=== PATIENT | male | born 1990 | race Caucasian/White ===

== ENCOUNTER 2021-01-01 16:39 | Emergency (ER) | payer OTHER, SELFPAY ==
[2021-01-01 16:45] VITALS: BP 139/91; PULSE 82; RESP 12; TEMP 36.5; O2SAT 99
--- NOTE | 2021-01-01 16:48 | ED.GENADULT ---
HPI - General Adult General Chief complaint: Abdominal Pain Stated complaint: low abd/groin tightness Time Seen by Provider: 01/01/21 16:49 Source: patient and RN notes reviewed Mode of arrival: ambulatory Limitations: no limitations History of Present Illness HPI narrative: 30-year-old male presents with concern for left lower abdominal pain that radiates to the left groin. He reports pain has been intermittent and somewhat mild over the past several weeks, however over the last 2 days the pain increased. He reports pain is made worse by straining, bending. Reports pain is improved with sitting. He denies vomiting, diarrhea, constipation. Reports he had a normal bowel movement today. Reports normal appetite. Denies fever, body aches. He denies testicular pain, swelling, redness, warmth. Denies dysuria, frequency, urgency. Denies exposure to STDs. Related Data Home Medications Medication Instructions Recorded Confirmed No Home Medications 01/01/21 01/01/21 Allergies Allergy/AdvReac Type Severity Reaction Status Date / Time No Known Allergies Allergy Verified 01/01/21 16:45 Review of Systems Review of Systems: CONSTITUTIONAL: Denies malaise, chills, sweats, or fever. CARDIOVASCULAR: Denies chest pain, palpitations, or edema. RESPIRATORY: Denies cough or dyspnea. GASTROINTESTINAL: Reports left lower abdominal pain that radiates to the left groin. Denies nausea, vomiting, diarrhea, bloody, or mucous stools. GENITOURINARY: Denies dysuria or hematuria. Denies testicular or scrotal swelling, redness, pain SKIN: Denies rash or itching. MUSCULOSKELETAL: Denies back pain or myalgia. All systems reviewed & are unremarkable except as noted in HPI and below PMFSH Family History Family History (System 06/04/20 @ 16:21 by Payal Diamond) Other Diabetes mellitus Family history of cardiovascular disease Family history of kidney disease Family history of tuberculosis Hypertension Social History Social History (System 06/04/20 @ 16:21 by Payal Diamond) Smoking status: Never smoker Alcohol intake: current Comments At time of signature, agree with nursing past medical, surgical, social and family history. There is no relevant family history pertinent to the presenting complaint Exam Narrative: GENERAL: Well-appearing, well-nourished, and in no acute distress. HEAD: Normocephalic, atraumatic. EYES: PERRLA, sclera clear ENT: Nares clear. Mucous membranes moist. NECK: Supple. CHEST: No respiratory distress. Clear to auscultation. No bony deformities, no asymmetry. Speaks in full sentences. HEART: Regular rate and rhythm. No murmur heard. Normal peripheral pulses. ABDOMEN: Soft, nontender, nondistended, normal active bowel sounds, no palpable masses. SKIN: Warm, dry, no visible rash. NEURO: Alert and oriented x3. PSYCH: Normal mood and affect Course Course Emergency Course: Discussed with patient follow-up with primary care provider or gastroenterology for further evaluation of his symptoms. Discussed reasons to go the emergency room if symptoms change. Patient is aware of diagnosis, understands and agrees to treatment plan. Anticipatory guidance given. Patient agrees to follow-up as directed and is aware of reasons to seek care at the emergency department. Portions of this record may have been created with voice recognition software Vital Signs Vital signs: Reviewed. Pt has been instructed to follow up with his primary care provider within the next week regarding his elevated blood pressure today. Medical Decision Making MDM Narrative Medical decision making narrative: No evidence of pancreatitis, AAA, cholecystitis, choledocholithiasis, cholangitis, mesenteric ischemia, small bowel obstruction, diverticulitis, colitis, appendicitis, or pelvic etiology such as ovarian/testicular torsion, TOA, or ectopic . Patient has no history of peptic ulcer, H. pylori, chronic aspirin NSAID or
== END 2021-01-01 17:08 | disposition home or self-care (01) ==
PROVIDERS: Emergency Provider Nurse Practitioner
DX: R10.32 Left lower quadrant pain (principal)
CPT/HCPCS: 99202; G0463

== ENCOUNTER 2021-02-28 09:14 | Emergency (ER) | payer OTHER, SELFPAY ==
--- NOTE | 2021-02-28 09:18 | ED.URI ---
HPI - URI/Sore Throat General Chief Complaint: Upper Respiratory Infection Stated Complaint: Sinus Infection,Abdominal Pain Time Seen by Provider: 02/28/21 09:22 Source: patient, RN notes reviewed and old records reviewed Mode of arrival: ambulatory Limitations: no limitations History of Present Illness HPI Narrative: 31 yo male presents to the [facility] with complaints of a sinus infection and abdominal pain. Sinus congestion started on Tuesday or , got worse last night. States he took a leftover amoxicillin. Has also taken DayQuil and NyQuil for symptoms. Has had gurgling sensation in the epigastric area. Denies any treatment prior to arrival. Patient denies chest pain, nausea, vomiting or diarrhea. Denies fevers MD elicited complaint: nasal congestion and sinus pain Related Data Allergies Allergy/AdvReac Type Severity Reaction Status Date / Time No Known Allergies Allergy Verified 02/28/21 09:30 Review of Systems Review of Systems: All systems reviewed & are unremarkable except as noted in HPI and below Constitutional: Constitutional: Reports no additional constitutional complaints, Denies chills and Denies fever(s) Eyes: Eyes: Reports no additional eye complaints ENT: Reports system reviewed and no additional complaints, except as documented, Reports as per HPI and Reports nasal congestion Cardiovascular: Cardiovascular: Reports no additional cardiovascular complaints and Denies chest pain Respiratory: Respiratory: Denies cough and Denies dyspnea Gastrointestinal: Gastrointestinal: Reports as per HPI, Reports abdominal pain (Gurgling epigastric), Denies constipation, Denies diarrhea, Denies nausea and Denies vomiting Musculoskeletal: Musculoskeletal: Reports no additional musculoskeletal complaints Integumentary/Breasts: Skin/Breast: Reports system reviewed and no additional complaints, except as docu Neurologic: Reports system reviewed and no additional complaints, except as documented Psychiatric: Psychiatric: Reports no additional psychiatric complaints Allergic/Immunologic: Allergic/Immunologic: Reports no additional allergic/immunologic complaints PMF Past Medical History Medical History (Updated 02/28/21 @ 09:37 by Maryjo Suazo) Patient denies significant medical history Surgical History Surgical History (Updated 02/28/21 @ 09:35 by Maryjo Suazo) No significant past surgical history Family History Family History Other Diabetes mellitus Family history of cardiovascular disease Family history of kidney disease Family history of tuberculosis Hypertension Social History Social History Smoking status: Never smoker Alcohol intake: current Comments At the time of my signature, I reviewed and agree with the nursing past medical, surgical, social, and family history. There is no relevant family history pertinent to the patient complaint. Exam Const: General: healthy appearing, no acute distress and alert Nutritional Appearance: well nourished and obese Orientation/consciousness: patient oriented x3 Limitations: no limitations HENMT: Head: normal to inspection Ears: external ears normal, TM's normal bilaterally and EAC's normal General nose exam: Normal external nose present, Normal nares present, Normal nasal mucous membranes and turbinates present and No nasal discharge present Face and sinus: normal facial exam Mouth: Yes Normal oral and palatal mucosa present Throat: posterior oropharynx normal, tonsils normal, uvula midline and no uvular edema Eyes: Conjunctivae: conjunctivae normal Pupils: Equal, round and reactive pupils present Neck: Neck: normal visual inspection, no lymphadenopathy and no meningeal signs Chest: Chest palpation & inspection: normal inspection of the chest Resp: Effort & Inspection: normal respiratory effort and no use of accessory musc
[2021-02-28 09:24] VITALS: BP 146/89; PULSE 91; RESP 16; TEMP 36.3; O2SAT 99
== END 2021-02-28 09:38 | disposition home or self-care (01) ==
PROVIDERS: Emergency Provider Nurse Practitioner
DX: J01.00 Acute maxillary sinusitis, unspecified (principal); K21.9 Gastro-esophageal reflux disease without esophagitis
CPT/HCPCS: 99213; G0463

== ENCOUNTER → 2021-05-22 15:06 | Outpatient (CLI) | payer OTHER, SELFPAY ==
--- NOTE | ~2021-05-22 | US_ITS ---
EXAMINATION: US breast LT limited HISTORY: Palpable mass at the 7:00 location of the left breast TECHNIQUE: Limited left breast ultrasound is performed. FINDINGS: There is no evidence of focal abnormal cystic or solid mass in the vicinity of the reported palpable abnormality of concern. IMPRESSION: No specific sonographic correlate is identified for the reported palpable abnormality of concern. Fur ther evaluation at this time should be based on clinical assessment. Continued follow-up physical exa mination is recommended. BI-RADS Category 1: Negative Reviewed, dictated and finalized at location [facility]. [employer] IMPRESSION: No specific sonographic correlate is identified for the reported palpable abnor mality of concern. Further evaluation at this time should be based on clinical assessment. Continued follow-up physical examination is recommended. BI-RADS Category 1: Negative
== END ==
PROVIDERS: Visit Provider Family Medicine
DX: N63.20 Unspecified lump in the left breast, unspecified quadrant (principal)
CPT/HCPCS: 76642

== ENCOUNTER 2021-09-29 14:36 | Emergency (ER) | payer OTHER, SELFPAY ==
--- NOTE | ~2021-09-29 | CT_ITS ---
EXAMINATION: CT abdomen pelvis w con DATE: 09/29/2021 16:29 INDICATION: Lower abdominal pain. Epigastric abdominal pain. Cramping. Lower back pain. TECHNIQUE: Computed tomography (CT) of the abdomen and pelvis was performed with 100 CC Omnipaque 300 intravenous contrast. Automated exposure control and iterative reconstruction technique were employe d. Exam dose: 1633.48 mGy-cm total exam DLP. COMPARISON: None. FINDINGS: The lung bases are clear. Normal heart size. No pericardial or pleural effusion. The liver, gallbladder, bile ducts, spleen, pancreas, pancreatic duct, and adrenal glands and kidneys are unremarkable. No urinary tract calculus or hydroureteronephrosis. The urinary bladder and prosta te gland are unremarkable. No bowel obstruction, bowel wall thickening, pneumatosis or intraperitoneal free air. Normal appendix . Small fat-containing umbilical hernia. Included skeletal structures are unremarkable. IMPRESSION: No significant abnormality Reviewed, dictated and finalized at [facility]. Reviewed, dictated and finalized at location [facility]. IMPRESSION: No significant abnormality
[2021-09-29 14:56] VITALS: BP 143/80; PULSE 88; RESP 16; TEMP 36.8; O2SAT 100
[2021-09-29 15:26] LABS: Basophils Absolute Auto 0.1 K/mm3 (0.0-0.1); Basophils Percent Auto 0.9 % (0.2-1.2); Eosinophils Absolute Auto 0.2 K/mm3 (0-0.3); Hematocrit 40.2 % (42.0-52.0); Hemoglobin 13.9 g/dL (14.0-18.0); Immature Granulocyte Absolute 0.05 K/mm3 (0.00-0.031); Immature Granulocyte Percent A 0.7 % (0-0.5); Lymphocytes Absolute Auto 1.91 K/mm3 (0.9-3.2); Lymphocytes Percent Auto 28.3 % (18.3-44.2); Mean Corpuscular HGB Conc 34.6 g/dl (32-36); Mean Corpuscular Hemoglobin 29.3 pg (26-34); Mean Corpuscular Volume 84.6 fl (80-100); Mean Platelet Volume 9.2 fl (7.4-10.4); Monocytes Absolute Auto 1.2 K/mm3 (0.1-0.6); Monocytes Percent Auto 17.8 % (2.6-8.5); Neutrophils Absolute Auto 3.3 K/mm3 (1.3-6.7); Neutrophils Percent Auto 49.3 % (45.5-73.1); Platelet Count Result 282 k/mm3 (150-375); Red Blood Count 4.75 M/mm3 (4.6-6.20); Red Cell Distribution Width 12.7 % (11.5-14.5); White Blood Count 6.8 K/mm3 (4.5-10.0)
[2021-09-29 15:33] LABS: Alanine Aminotransferase 58 U/L (6-50); Albumin Level 5.1 g/dL (3.5-5.1); Alkaline Phosphatase 76 U/L (38-126); Anion Gap 5 mmol/L (8-16); Aspartate Amino Transferase 35 U/L (17-59); Bilirubin,Total 0.6 mg/dL (0.2-1.3); Blood Urea Nitrogen 13 mg/dL (9-20); Calcium 9.1 mg/dL (8.4-10.2); Carbon Dioxide 32 mmol/L (22-30); Chloride 102 mmol/L (98-107); Estimated CRCL calculation 148 ml/min; Estimated Glomerular Filt Rate > 60; Glucose 94 mg/dL (65-110); Lipase 104 U/L (23-300); Potassium 4.8 mmol/L (3.4-5.0); Sodium 139 mmol/L (137-145)
[2021-09-29 15:49] LABS: Add Urine Microscopic? YES; Appearance Urine Clear (Clear); Bilirubin Urine Negative (Negative); Blood Urine Trace-lysed (Negative); Color Urine Yellow (Yellow); Glucose Urine UA Negative (Negative); Ketones Urine Negative (Negative); Leukocyte Esterase Ur Negative LEU/UL (Negative); Nitrate Urine Negative (Negative); Protein Urine 2+ mg/dL (Negative); Specific Grav Ur >= 1.030 (1.001-1.035); Urobilinogen Urine 0.2 mg/dL (<2.0)
[2021-09-29 15:56] VITALS: BP 127/85; PULSE 87; RESP 16; O2SAT 99
[2021-09-29 16:07] LABS: Bacteria Urine Trace /hpf; Mucus Urine Few /lpf; WBC Urine 0-3 /hpf
[2021-09-29] MEDS: DICYCLOMINE HCL INJ 20 MG/2 ML VIAL IM (16:08)
[2021-09-29] MEDS: SODIUM CHLORIDE 0.9% IV 1,000 ML 999 ML IV CONT (16:09)
--- NOTE | 2021-09-29 16:19 | ED.ABDPAIN ---
HPI - Abdominal Pain General Chief Complaint: Abdominal Pain Stated Complaint: abd pain Time Seen by Provider: 09/29/21 15:34 History of Present Illness HPI narrative: 31-year-old male presents the emergency room for evaluation of lower abdominal pain. Describes pain as cramping and is associated with frequent episodes of diarrhea. Denies nausea or vomiting. Denies back pain or radiating pain. Denies fever. Related Data Allergies Allergy/AdvReac Type Severity Reaction Status Date / Time No Known Allergies Allergy Verified 09/29/21 15:59 Review of Systems Review of Systems: CONSTITUTIONAL: Denies fever, chills, or sweats. EYES: Denies visual changes, redness, or discharge. ENT: Denies rhinorrhea, congestion, sore throat, or otalgia. CARDIOVASCULAR: Denies chest pain, palpitations, or edema. RESPIRATORY: Denies cough or dyspnea. GASTROINTESTINAL: Reports abdominal pain and diarrhea GENITOURINARY: Denies dysuria or hematuria. SKIN: Denies rash or itching. MUSCULOSKELETAL: Denies back pain, joint pain, or myalgia. NEUROLOGIC: Denies headache, numbness, dizziness, or weakness. PSYCHIATRIC: Denies anxiety or depression. [facility] Past Medical History Medical History Acute midline low back pain without sciatica Body mass index [BMI] 40.0-44.9, adult Encounter for preventive health examination Morbid (severe) obesity due to excess calories (01/02/16) Nevus Patient denies significant medical history Rectal bleeding Sore throat Spasm of back muscles Surgical History Surgical History No significant past surgical history Family History Family History Father Diabetes mellitus Hypertension Grandparent Cancer Social History Social History Smoking status: Never smoker Alcohol intake: current Alcohol use details: occasionally beer/whiskey Substance use: current Substance use type: marijuana 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 HEAD: Normocephalic, atraumatic. EYES: Conjunctivae normal, PERRLA and EOMI. CHEST: Clear to auscultation. No respiratory distress. No wheezes rales or rhonchi. No tenderness. HEART: Regular rate and rhythm. No murmur heard. Normal peripheral pulses. ABDOMEN: Soft, periumbilical tenderness, nondistended, normal active bowel sounds. No guarding. EXTREMITIES: Normal range of motion. No edema. No clubbing or cyanosis SKIN: Warm, dry, no rash. No noted wounds NEURO: No focal deficits. Alert and oriented x3. MAEW. CN's II-XI intact bilaterally, normal gait PSYCH: Cooperative. Normal mood and affect. Course Vital Signs Vital signs: Vital Signs Temperature 36.8 C 09/29/21 14:56 Pulse Rate 88 09/29/21 14:56 Respiratory Rate 16 09/29/21 14:56 Blood Pressure 143/80 H 09/29/21 14:56 Pulse Oximetry 100 09/29/21 14:56 Oxygen Delivery Room Air 09/29/21 14:56 Temperature 36.8 C 09/29/21 14:56 Pulse Rate 87 09/29/21 15:56 Respiratory Rate 16 09/29/21 15:56 Blood Pressure 127/85 09/29/21 15:56 Pulse Oximetry 99 09/29/21 15:56 Oxygen Delivery Room Air 09/29/21 15:56 MDM - Abdominal Pain MDM Narrative Medical decision making narrative: 31-year-old male presenting with lower abdominal pain. Exam was without any peritoneal signs. No evidence of acute abdomen at this time. CT scan showed no acute intra-abdominal abnormalities. There is a low suspicion for any hepatobiliary disease, acute pancreatitis or any infectious process. Presentation not consistent with any acut
[2021-09-29 17:09] VITALS: BP 148/86; PULSE 80; RESP 16; O2SAT 99
== END 2021-09-29 17:10 | disposition home or self-care (01) ==
PROVIDERS: Emergency Medicine; Emergency Provider Nurse Practitioner Family
DX: R10.30 Lower abdominal pain, unspecified (principal); E66.01 Morbid (severe) obesity due to excess calories; Z68.38 Body mass index [BMI] 38.0-38.9, adult
CPT/HCPCS: 36415; 74177; 80053; 81001; 83690; 85025; 96360; 96372; 99284; J0500; J7030; Q9967

== ENCOUNTER 2021-12-08 17:39 | Emergency (ER) | payer OTHER, SELFPAY ==
[2021-12-08 17:41] VITALS: BP 143/88; PULSE 99; RESP 18; TEMP 36.7; O2SAT 97
--- NOTE | 2021-12-08 19:45 | ED.GENADULT ---
HPI - General Adult General Chief complaint: Head Injury Stated complaint: HEAD INJ Time Seen by Provider: 12/08/21 19:27 History of Present Illness HPI narrative: Patient is a 31-year-old male who presents ER with an abrasion to his forehead. Reports he is lifting himself up on a dumpster when he struck his head on a metal corner. Because abrasion left forehead. He believes his tetanus shot is up-to-date. Since then he has developed some achiness in his left neck and also has developed some slight headache with dizziness. Unsure of any exacerbating factors. Has not tried any pain medication. No change in vision or hearing. No upper or lower extremity numbness or tingling. He has preserved range of motion of the neck. Related Data Allergies Allergy/AdvReac Type Severity Reaction Status Date / Time No Known Allergies Allergy Verified 12/08/21 19:22 Review of Systems Review of Systems: All systems reviewed & are unremarkable except as noted in HPI and below Eyes: Eyes: Denies change in vision and Denies photophobia Gastrointestinal: Gastrointestinal: Denies abdominal pain, Denies nausea and Denies vomiting Musculoskeletal: Musculoskeletal: Denies myalgias and Denies arthralgias Integumentary/Breasts: Skin/Breast: Reports erythema Comments: Forehead abrasion Neurologic: Denies syncope, Reports headache(s), Denies focal weakness and Denies numbness PMFSH Past Medical History Medical History Acute midline low back pain without sciatica Body mass index [BMI] 40.0-44.9, adult Encounter for preventive health examination Morbid (severe) obesity due to excess calories (01/02/16) Nevus Patient denies significant medical history Rectal bleeding Sore throat Spasm of back muscles Surgical History Surgical History No significant past surgical history Family History Family History Father Diabetes mellitus Hypertension Grandparent Cancer Social History Social History Smoking status: Never smoker Alcohol intake: current Alcohol use details: occasionally beer/whiskey Substance use: current Substance use type: marijuana 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 HEAD: Normocephalic, left forehead abrasion EYES: PERRL and EOMI. NECK: Supple, no midline tenderness, normal ROM. CHEST: Clear to auscultation. No respiratory distress. HEART: Regular rate and rhythm. Normal peripheral pulses. EXTREMITIES: Normal range of motion. No edema. NEURO: Alert and oriented x3. PSYCH: Normal mood and affect. Course Course Emergency Course: Patient resting comfortably. Discussed treatment plan and head injury precautions verbalized understanding. Discharge home. Vital Signs Vital signs: Vital Signs Temperature 98.0 F 12/08/21 17:41 Pulse Rate 99 12/08/21 17:41 Respiratory Rate 18 12/08/21 17:41 Blood Pressure 143/88 H 12/08/21 17:41 Pulse Oximetry 97 12/08/21 17:41 Oxygen Delivery Room Air 12/08/21 17:41 Temperature 98.0 F 12/08/21 17:41 Pulse Rate 99 12/08/21 17:41 Respiratory Rate 18 12/08/21 17:41 Blood Pressure 143/88 H 12/08/21 17:41 Pulse Oximetry 97 12/08/21 17:41 Oxygen Delivery Room Air 12/08/21 17:41 Medical Decision Making Vital Signs Vital Signs: Vital Signs Temperature 98.0 F 12/08/21 17:41 Pulse Rate 99 12/08/21 17:41 Respiratory Rate 18 12/08/21 17:41 Blood Pressure 143/88 H 12/08/21 17:41 Pulse Oximetry 97 12/08/21 17:41 Oxygen Delivery Room Air 12/08/21 17:41
== END 2021-12-08 20:20 | disposition home or self-care (01) ==
PROVIDERS: Emergency Provider Emergency Medicine
DX: S00.81XA Abrasion of other part of head, initial encounter (principal); E66.01 Morbid (severe) obesity due to excess calories; Z68.39 Body mass index [BMI] 39.0-39.9, adult; W22.8XXA Striking against or struck by other objects, initial encounter
CPT/HCPCS: 99283

== ENCOUNTER 2023-04-13 09:44 | Emergency (ER) | payer OTHER, SELFPAY ==
--- NOTE | ~2023-04-13 | CT_ITS ---
EXAMINATION: CT lumbar spine wo con DATE: 04/13/2023 12:04 INDICATION: Low back pain radiating to the right leg. TECHNIQUE: Computed tomography (CT) of the lumbar spine was performed without intravenous contrast. T he dose-length product was 1354.74 mGy-cm. Automated exposure control and iterative reconstruction te cherylcainque were employed. COMPARISON: MRI dated 08/11/2009 FINDINGS: There is mild annular disc bulging at L5-S1 with disc narrowing. There is endplate hypertro phy at this level, contributing to mild-moderate neuroforaminal narrowing, left greater than right. V ertebral body heights are maintained. Chronic mild wedge shaped appearance to L1, unchanged. No acute fracture or traumatic malalignment. No evidence for spondylolisthesis. No significant paraspinal sof t tissue abnormality. IMPRESSION: 1. Mild lumbar spondylosis at L5-S1 with bilateral neural foraminal narrowing, left greater than righ t. Reviewed, dictated and finalized at location [facility]. [employer] IMPRESSION: 1. Mild lumbar spondylosis at L5-S1 with bilateral neural foraminal narrowing, left greater than right.
[2023-04-13 09:47] VITALS: BP 156/102; PULSE 85; RESP 16; TEMP 36.6; O2SAT 99
--- NOTE | 2023-04-13 11:39 | ED.BACK ---
HPI - Back Pain/Injury General Chief Complaint: Back Pain/Injury Stated Complaint: back pain Time Seen by Provider: 04/13/23 10:57 Source: patient Mode of arrival: ambulatory Limitations: no limitations History of Present Illness HPI Narrative: This is a 33-year-old male that presents to the emergency department for low back pain. Ongoing over the last week. No recent injuries or trauma. Reports the pain is in his right buttock and radiates down his right leg. Reports intermittent tingling in his toes. Pain is worse with movement. He has been taking Tylenol with little relief. Denies saddle anesthesia, bowel/ bladder incontinence. Related Data Allergies Allergy/AdvReac Type Severity Reaction Status Date / Time No Known Allergies Allergy Verified 04/13/23 12:10 Review of Systems Review of Systems: CONSTITUTIONAL: Denies fever MUSCULOSKELETAL: Reports back pain, joint pain, and myalgia. NEUROLOGIC: Denies numbness, or weakness. All systems reviewed & are unremarkable except as noted in HPI and below PMFSH Past Medical History Medical History Acute midline low back pain without sciatica Body mass index [BMI] 40.0-44.9, adult Encounter for preventive health examination Morbid (severe) obesity due to excess calories (01/02/16) Nevus Patient denies significant medical history Rectal bleeding Sore throat Spasm of back muscles Surgical History Surgical History No significant past surgical history Family History Family History Father Diabetes mellitus Hypertension Grandparent Cancer Social History Social History Smoking status: Never smoker Alcohol intake: current Alcohol use details: occasionally beer/whiskey Substance use: current Substance use type: marijuana Living arrangements: with roommate(s) Occupation/Education: occupation 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 HEAD: Normocephalic, atraumatic. EYES: EOMI. CHEST: Clear to auscultation. No respiratory distress. No wheezes rales or rhonchi HEART: Regular rate and rhythm. No murmur heard. Normal peripheral pulses. BACK: No midline spinal tenderness EXTREMITIES: Normal range of motion. No edema. Strength equal in bilateral lower extremities (5/5) SKIN: Warm, dry, no rash. NEURO: No focal deficits. Alert and oriented x3. PSYCH: Normal mood and affect Course Course Emergency Course: Patient updated on his workup and agrees with plan of care Vital Signs Vital signs: Vital Signs Temperature 97.9 F 04/13/23 09:47 Pulse Rate 85 04/13/23 09:47 Respiratory Rate 16 04/13/23 09:47 Blood Pressure 156/102 H 04/13/23 09:47 Pulse Oximetry 99 04/13/23 09:47 Temperature 97.9 F 04/13/23 12:09 Pulse Rate 93 04/13/23 12:09 Respiratory Rate 18 04/13/23 12:09 Blood Pressure 146/111 H 04/13/23 12:09 Pulse Oximetry 97 04/13/23 12:09 MDM - Back Pain/Injury MDM Narrative Medical decision making narrative: Patient presents to the emergency department for low back pain ongoing over the last week. No recent injury or trauma. Patient is neurologically intact. Denies saddle anesthesia, bowel/bladder incontinence. CT lumbar spine shows mild lumbar spondylosis at L5/S1. Patient instructed on further care. Will be given muscle relaxer as needed for pain. Will be given follow-up with Neurosurgery. He was given warnings to return to the ER Differential Diagnosis Differential diagnosis: Likely lumbar radiculopathy, sciatica and strain of lumbar region
[2023-04-13] MEDS: KETOROLAC 30 MG/ML VIAL (*BKC) IM (11:54)
[2023-04-13 12:09] VITALS: BP 146/111; PULSE 93; RESP 18; TEMP 36.6; O2SAT 97
== END 2023-04-13 13:14 | disposition home or self-care (01) ==
PROVIDERS: Emergency Provider Physician Assistant; PCP Emergency Medicine
DX: M54.16 Radiculopathy, lumbar region (principal)
CPT/HCPCS: 72131; 96372; 99284; J1885